=== PATIENT | male | born 1945 | race Caucasian/White ===

== ENCOUNTER → 2020-11-13 07:20 | Outpatient (CLI) | payer MEDICARE, OTHER, SELFPAY ==
[2020-11-13 08:24] LABS: Alanine Aminotransferase 25 IU/L (<50); Albumin 3.9 g/dL (3.5-5.0); Albumin Globulin Ratio 1.6 (1.0-2.8); Alkaline Phosphatase 59 U/L (38-126); Aspartate Aminotransferase 33 IU/L (17-59); BUN Creatinine Ratio 17.6 (6-22); Bilirubin Total 0.5 mg/dL (0.2-1.3); Blood Urea Nitrogen 18 mg/dL (9-20); Calcium 8.9 mg/dL (8.4-10.2); Carbon Dioxide 28 mmol/L (22-32); Chloride 105 mmol/L (98-107); Cholesterol 138 mg/dL (140-199); Estimated Glomerular Filt Rate > 60.0 mL/min (>60); Globulin 2.4 g/dL (1.7-4.1); Glucose 106 mg/dL (80-110); HDL Cholesterol 55 mg/dL (40-60); HEMOLYSIS < 15 (0-50); LDL Cholesterol Calculated 75 mg/dL (<100); Potassium 3.8 mmol/L (3.4-5.1); Sodium 137 mmol/L (137-145); Total Protein 6.3 g/dL (6.3-8.2); Triglycerides 42 mg/dL (35-150)
[2020-11-13 08:53] LABS: Prostate Specific Antigen Scrn 2.43 ng/mL (0.1-4.0)
[2020-11-13 08:55] LABS: Thyroid Stimulating Hormone 1.92 uIU/mL (0.47-4.68)
== END ==
PROVIDERS: Referring Provider Internal Medicine; Visit Provider Internal Medicine
DX: E78.49 Other hyperlipidemia (principal); Z12.5 Encounter for screening for malignant neoplasm of prostate; E03.9 Hypothyroidism, unspecified
CPT/HCPCS: 36415; 80053; 80061; 84443; G0103

== ENCOUNTER → 2021-02-07 07:27 | Outpatient (CLI) | payer MEDICARE, OTHER, SELFPAY ==
[2021-02-07 09:04] LABS: Alanine Aminotransferase 32 IU/L (<50); Albumin 3.6 g/dL (3.5-5.0); Albumin Globulin Ratio 1.5 (1.0-2.8); Alkaline Phosphatase 52 U/L (38-126); Aspartate Aminotransferase 36 IU/L (17-59); BUN Creatinine Ratio 28.2 (6-22); Bilirubin Total 0.7 mg/dL (0.2-1.3); Blood Urea Nitrogen 33 mg/dL (9-20); Calcium 8.5 mg/dL (8.4-10.2); Carbon Dioxide 27 mmol/L (22-32); Chloride 107 mmol/L (98-107); Cholesterol 136 mg/dL (140-199); Estimated Glomerular Filt Rate > 60.0 mL/min (>60); Globulin 2.4 g/dL (1.7-4.1); Glucose 95 mg/dL (80-110); HDL Cholesterol 53 mg/dL (40-60); HEMOLYSIS < 15 (0-50); LDL Cholesterol Calculated 77 mg/dL (<100); Potassium 3.9 mmol/L (3.4-5.1); Sodium 140 mmol/L (137-145); Triglycerides 32 mg/dL (35-150)
[2021-02-07 09:34] LABS: Prostate Specific Antigen Scrn 1.92 ng/mL (0.1-4.0)
[2021-02-07 09:35] LABS: Thyroid Stimulating Hormone 3.79 uIU/mL (0.47-4.68)
== END ==
PROVIDERS: PCP Internal Medicine; Referring Provider Internal Medicine; Visit Provider Internal Medicine
DX: E78.49 Other hyperlipidemia (principal); Z12.5 Encounter for screening for malignant neoplasm of prostate; E03.9 Hypothyroidism, unspecified
CPT/HCPCS: 36415; 80053; 80061; 84443; G0103

== ENCOUNTER → 2022-04-06 09:29 | Outpatient (CLI) | payer MEDICARE, OTHER, SELFPAY ==
[2022-04-06 11:46] LABS: BUN Creatinine Ratio 24.5 (6-22); Blood Urea Nitrogen 26 mg/dL (9-20); Calcium 8.3 mg/dL (8.4-10.2); Carbon Dioxide 24 mmol/L (22-32); Chloride 109 mmol/L (98-107); Cholesterol 101 mg/dL (140-199); Estimated Glomerular Filt Rate > 60 mL/min (>60); Glucose 99 mg/dL (80-110); HDL Cholesterol 37 mg/dL (40-60); HEMOLYSIS < 15 (0-50); LDL Cholesterol Calculated 53 mg/dL (<100); Potassium 4.2 mmol/L (3.4-5.1); Sodium 140 mmol/L (137-145); Triglycerides 56 mg/dL (35-150); VLDL Cholesterol Calculated 11 mg/dL (2-30)
== END ==
PROVIDERS: PCP Internal Medicine
DX: E78.00 Pure hypercholesterolemia, unspecified (principal)
CPT/HCPCS: 36415; 80048; 80061

== ENCOUNTER → 2022-06-04 09:48 | Outpatient (CLI) | payer MEDICARE, OTHER, SELFPAY ==
[2022-06-04 11:34] LABS: TSH w/ Reflex to FT4 0.63 uIU/mL (0.47-4.68)
== END ==
PROVIDERS: PCP Internal Medicine; Referring Provider Internal Medicine; Visit Provider Internal Medicine
DX: E03.9 Hypothyroidism, unspecified (principal)
CPT/HCPCS: 36415; 84443

== ENCOUNTER 2022-06-29 08:30 | Outpatient (RCR) | payer MEDICARE, OTHER, SELFPAY | END 2022-06-29 15:09 | LOC: CAR 08:30 | PROVIDERS: PCP Internal Medicine; Referring Provider Thoracic Surgery (Cardiothoracic Vascular Surgery); Visit Provider Thoracic Surgery (Cardiothoracic Vascular Surgery) | DX: Z95.2 Presence of prosthetic heart valve (principal) | CPT/HCPCS: 93798 ==

== ENCOUNTER → 2022-07-02 08:52 | Outpatient (CLI) | payer MEDICARE, OTHER, SELFPAY ==
[2022-07-02 10:30] LABS: Add Manual Diff / Slide Review NO; Basophils Absolute Auto 0 /uL (0-100); Basophils Percent Auto 0.7 % (0-2); Eosinophils Absolute Auto 200 /uL (0-450); Eosinophils Percent Auto 3.9 % (2-4); Hematocrit 36.3 % (41-53); Lymphocytes Absolute Auto 1300 /uL (1100-4500); Lymphocytes Percent Auto 26.7 % (25-40); Mean Corpuscular HGB Conc 33.2 % (30-36); Mean Corpuscular Hemoglobin 27.9 PG (26-34); Mean Corpuscular Volume 84.1 fL (80-100); Monocytes Absolute Auto 500 /uL (0-900); Monocytes Percent Auto 10.5 % (3-14); Neutrophils Absolute Auto 2900 /uL (1500-7000); Neutrophils Percent Auto 58.2 % (50-75); Platelet Count 183 X10^3/uL (150-400); Red Blood Cell Count 4.32 X10^6/uL (4.5-5.9); Red Cell Distribution Width 16.9 % (11.6-14.8)
[2022-07-02 10:55] LABS: BUN Creatinine Ratio 15.9 (6-22); Blood Urea Nitrogen 21 mg/dL (9-20); Calcium 8.5 mg/dL (8.4-10.2); Carbon Dioxide 29 mmol/L (22-32); Chloride 103 mmol/L (98-107); Estimated Glomerular Filt Rate 56 mL/min (>60); Glucose 94 mg/dL (80-110); HEMOLYSIS < 15 (0-50); Sodium 140 mmol/L (137-145)
== END ==
PROVIDERS: PCP Internal Medicine; Referring Provider Internal Medicine Cardiovascular Disease; Visit Provider Internal Medicine Cardiovascular Disease
DX: I48.19 Other persistent atrial fibrillation (principal)
CPT/HCPCS: 36415; 80048; 85025

== ENCOUNTER → 2022-07-20 07:47 | Outpatient (CLI) | payer MEDICARE, OTHER, SELFPAY ==
[2022-07-20 09:46] LABS: Cholesterol 132 mg/dL (140-199); HDL Cholesterol 63 mg/dL (40-60); LDL Cholesterol Calculated 58 mg/dL (<100); Triglycerides 54 mg/dL (35-150)
[2022-07-20 17:29] LABS: Alanine Aminotransferase 23 IU/L (<50); Albumin 4.2 g/dL (3.5-5.0); Albumin Globulin Ratio 1.8 (1.0-2.8); Alkaline Phosphatase 94 U/L (38-126); Aspartate Aminotransferase 25 IU/L (17-59); BUN Creatinine Ratio 17.1 (6-22); Bilirubin Total 1.1 mg/dL (0.2-1.3); Blood Urea Nitrogen 22 mg/dL (9-20); Calcium 8.9 mg/dL (8.4-10.2); Carbon Dioxide 28 mmol/L (22-32); Chloride 105 mmol/L (98-107); Estimated Glomerular Filt Rate 58 mL/min (>60); Globulin 2.3 g/dL (1.7-4.1); Glucose 106 mg/dL (80-110); HEMOLYSIS < 15 (0-50); Potassium 3.9 mmol/L (3.4-5.1); Sodium 139 mmol/L (137-145); Total Protein 6.5 g/dL (6.3-8.2)
[2022-07-20 18:36] LABS: TSH w/ Reflex to FT4 2.66 uIU/mL (0.47-4.68)
== END ==
PROVIDERS: PCP Internal Medicine; Referring Provider Nurse Practitioner; Visit Provider Nurse Practitioner
DX: E78.00 Pure hypercholesterolemia, unspecified (principal)
CPT/HCPCS: 36415; 80048; 80061; 80076; 84443

== ENCOUNTER → 2022-09-16 07:33 | Outpatient (CLI) | payer MEDICARE, OTHER, SELFPAY ==
[2022-09-16 09:18] LABS: BUN Creatinine Ratio 17.1 (6-22); Blood Urea Nitrogen 24 mg/dL (9-20); Calcium 8.7 mg/dL (8.4-10.2); Carbon Dioxide 28 mmol/L (22-32); Chloride 103 mmol/L (98-107); Cholesterol 113 mg/dL (140-199); Estimated Glomerular Filt Rate 52 mL/min (>60); Glucose 92 mg/dL (80-110); HDL Cholesterol 45 mg/dL (40-60); HEMOLYSIS < 15 (0-50); LDL Cholesterol Calculated 53 mg/dL (<100); Potassium 3.4 mmol/L (3.4-5.1); Sodium 142 mmol/L (137-145); Triglycerides 73 mg/dL (35-150)
[2022-09-16 09:29] LABS: LDL Cholesterol Direct 47 mg/dL (<100)
== END ==
PROVIDERS: PCP Internal Medicine; Referring Provider Physician Assistant; Visit Provider Physician Assistant
DX: I10 Essential (primary) hypertension (principal)
CPT/HCPCS: 36415; 80048; 80061; 83721

== ENCOUNTER → 2022-11-26 08:38 | Outpatient (CLI) | payer MEDICARE, OTHER, SELFPAY ==
[2022-12-07 18:54] LABS: Aldosterone/Renin Activity Rat 9.9 (0.0-30.0); Plama Renin, LC/MS/MS 0.355 ng/mL/hr (0.167-5.380)
== END ==
PROVIDERS: PCP Internal Medicine; Referring Provider Internal Medicine; Visit Provider Internal Medicine
DX: I10 Essential (primary) hypertension (principal)
CPT/HCPCS: 36415; 82088; 84244

== ENCOUNTER → 2022-12-23 06:58 | Outpatient (CLI) | payer MEDICARE, OTHER, SELFPAY ==
[2022-12-23 08:35] LABS: Blood Urea Nitrogen 34 mg/dL (9-20); Calcium 8.8 mg/dL (8.4-10.2); Carbon Dioxide 29 mmol/L (22-32); Chloride 102 mmol/L (98-107); Estimated Glomerular Filt Rate 54 mL/min (>60); Glucose 97 mg/dL (80-110); HEMOLYSIS < 15 (0-50); Sodium 138 mmol/L (137-145)
== END ==
PROVIDERS: PCP Internal Medicine; Referring Provider Internal Medicine; Visit Provider Internal Medicine
DX: I11.9 Hypertensive heart disease without heart failure (principal)
CPT/HCPCS: 36415; 80048

== ENCOUNTER → 2023-01-11 07:14 | Outpatient (CLI) | payer MEDICARE, OTHER, SELFPAY ==
[2023-01-11 08:42] LABS: Cholesterol 193 mg/dL (140-199); HDL Cholesterol 38 mg/dL (40-60); LDL Cholesterol Calculated 138 mg/dL (<100); Triglycerides 85 mg/dL (35-150)
[2023-01-11 09:57] LABS: TSH w/ Reflex to FT4 2.44 uIU/mL (0.47-4.68)
[2023-01-12 19:45] LABS: Hep C Virus Ab w/Reflex Quant NEGATIVE s/c (NEGATIVE)
[2023-01-14 04:27] LABS: Cystatin C 0.91 mg/L (0.78-1.15)
== END ==
PROVIDERS: PCP Student in an Organized Health Care Education/Training Program; Referring Provider Student in an Organized Health Care Education/Training Program; Visit Provider Student in an Organized Health Care Education/Training Program
DX: E03.9 Hypothyroidism, unspecified (principal); E78.2 Mixed hyperlipidemia; E06.4 Drug-induced thyroiditis; T46.2X5A Adverse effect of other antidysrhythmic drugs, initial encounter; Z11.59 Encounter for screening for other viral diseases; N18.31 Chronic kidney disease, stage 3a
CPT/HCPCS: 36415; 80061; 82610; 84443; 86803

== ENCOUNTER → 2023-02-24 07:35 | Outpatient (CLI) | payer MEDICARE, OTHER, SELFPAY ==
[2023-02-24 10:20] LABS: Thyroid Stimulating Hormone 1.91 uIU/mL (0.47-4.68)
[2023-02-24 10:23] LABS: Free T4, Direct Thyroxine 1.55 ng/dL (0.78-2.19)
== END ==
PROVIDERS: PCP Internal Medicine; Referring Provider Internal Medicine; Visit Provider Internal Medicine
DX: I48.0 Paroxysmal atrial fibrillation (principal)
CPT/HCPCS: 36415; 84439; 84443

== ENCOUNTER → 2023-05-11 07:51 | Outpatient (CLI) | payer MEDICARE, OTHER, SELFPAY ==
[2023-05-11 09:36] LABS: Alanine Aminotransferase 24 IU/L (<50); Albumin 4.2 g/dL (3.5-5.0); Albumin Globulin Ratio 1.8 (1.0-2.8); Alkaline Phosphatase 68 U/L (38-126); Aspartate Aminotransferase 26 IU/L (17-59); BUN Creatinine Ratio 17.1 (6-22); Bilirubin Total 0.9 mg/dL (0.2-1.3); Blood Urea Nitrogen 26 mg/dL (9-20); Calcium 8.9 mg/dL (8.4-10.2); Carbon Dioxide 26 mmol/L (22-32); Chloride 103 mmol/L (98-107); Estimated Glomerular Filt Rate 47 mL/min (>60); Globulin 2.3 g/dL (1.7-4.1); Glucose 101 mg/dL (80-110); HEMOLYSIS < 15 (0-50); Potassium 4.1 mmol/L (3.4-5.1); Sodium 138 mmol/L (137-145); Total Protein 6.5 g/dL (6.3-8.2)
== END ==
PROVIDERS: PCP Internal Medicine; Referring Provider Internal Medicine; Visit Provider Internal Medicine
DX: E78.5 Hyperlipidemia, unspecified (principal)
CPT/HCPCS: 36415; 80053

== ENCOUNTER → 2023-05-28 08:22 | Outpatient (CLI) | payer MEDICARE, OTHER, SELFPAY ==
[2023-05-28 09:14] LABS: Blood Urea Nitrogen 25 mg/dL (9-20); Calcium 9.3 mg/dL (8.4-10.2); Carbon Dioxide 28 mmol/L (22-32); Chloride 102 mmol/L (98-107); Estimated Glomerular Filt Rate 49 mL/min (>60); Glucose 121 mg/dL (80-110); HEMOLYSIS < 15 (0-50); Potassium 4.2 mmol/L (3.4-5.1); Sodium 137 mmol/L (137-145)
== END ==
PROVIDERS: PCP Internal Medicine; Referring Provider Internal Medicine; Visit Provider Internal Medicine
DX: I11.9 Hypertensive heart disease without heart failure (principal)
CPT/HCPCS: 36415; 80048

== ENCOUNTER → 2023-06-16 07:47 | Outpatient (CLI) | payer MEDICARE, OTHER, SELFPAY ==
[2023-06-16 08:57] LABS: BUN Creatinine Ratio 15.4 (6-22); Blood Urea Nitrogen 20 mg/dL (9-20); Calcium 8.9 mg/dL (8.4-10.2); Carbon Dioxide 28 mmol/L (22-32); Chloride 105 mmol/L (98-107); Estimated Glomerular Filt Rate 57 mL/min (>60); Glucose 104 mg/dL (80-110); HEMOLYSIS < 15 (0-50); Potassium 3.9 mmol/L (3.4-5.1); Sodium 139 mmol/L (137-145)
== END ==
PROVIDERS: PCP Internal Medicine; Referring Provider Internal Medicine; Visit Provider Internal Medicine
DX: E11.9 Type 2 diabetes mellitus without complications (principal)
CPT/HCPCS: 36415; 80048

== ENCOUNTER → 2023-07-30 07:31 | Outpatient (CLI) | payer MEDICARE, OTHER, SELFPAY ==
[2023-07-30 10:14] LABS: BUN Creatinine Ratio 16.4 (6-22); Blood Urea Nitrogen 20 mg/dL (9-20); Calcium 9.1 mg/dL (8.4-10.2); Carbon Dioxide 26 mmol/L (22-32); Chloride 104 mmol/L (98-107); Estimated Glomerular Filt Rate > 60 mL/min (>60); Glucose 93 mg/dL (80-110); HEMOLYSIS < 15 (0-50); Potassium 3.7 mmol/L (3.4-5.1); Sodium 137 mmol/L (137-145)
== END ==
PROVIDERS: PCP Internal Medicine; Referring Provider Internal Medicine; Visit Provider Internal Medicine
DX: I11.9 Hypertensive heart disease without heart failure (principal); E78.5 Hyperlipidemia, unspecified
CPT/HCPCS: 36415; 80048

== ENCOUNTER → 2023-08-02 09:05 | Outpatient (CLI) | payer MEDICARE, OTHER, SELFPAY ==
--- NOTE | 2023-08-02 | DI.CT.S_ITS ---
PROCEDURE: CT ANGIO CHEST INDICATIONS: Aneurysm of the ascending aorta, without rupture TECHNIQUE: After the administration of intravenous contrast, 2.5 mm thick sections acquired from the lung apices to the posterior lung bases. Maximum intensity projection (MIP) oblique sagittal reformats were then acquired parallel to the aortic arch. For radiation dose reduction, the following was used: automated exposure control. COMPARISON: Outside Facility, , CT ANGIO CHEST, 08/10/2022, 8:09. FINDINGS: Image quality: Excellent. Aorta: Again noted is open repair of the ascending aorta. A small apparent anterior pseudoaneurysm off of the ascending aorta does not appear significantly changed in size. On previous image 36 of series 6 it measured 1.3 x 0.7 cm. On current image 81/4 it measures 1.3 x 0.7 cm. A question tiny left anterior pseudoaneurysm is also unchanged in size. Reference previous image 32 of series 6 versus current image 74 of series 4. The repaired ascending aorta is otherwise normal in caliber. Transverse arch and descending thoracic aorta are normal in caliber. There is classic three-vessel arch anatomy. Great vessel origins are widely patent. Mediastinum: No hematomas. Percutaneous aortic valve. Severe coronary artery calcifications. Mild cardiomegaly.. No pericardial effusion. No mediastinal or hilar adenopathy by size criteria. Central pulmonary arteries are normal in size. Esophagus is normal in caliber. No hiatal hernia. Lungs and pleura: No acute airspace opacities. No pleural effusions or pneumothorax. Central and peripheral airways are patent and normal in caliber. Bones and chest wall: No axillary adenopathy by size criteria. Thyroid gland is unremarkable . No suspicious bony lesions. No vertebral body compression fractures. Upper Abdomen: There is an oval water density right adrenal mass which has slightly increased in size. On previous image 68/2 it measured 5.5 x 4.2 cm. On current image sets 177/4 it measures 6.3 x 4.1 cm. IMPRESSION: 1. Stable size and appearance of ascending aorta, status post open repair. 2 apparent small pseudoaneurysms appear stable. 2. Cardiomegaly, valve prosthesis, severe coronary artery atherosclerotic calcifications. 3. Interval increase in size of a water density right adrenal lesion. Although this lesion most likely represents a benign adenoma, lesions greater than 5 cm are indeterminate, and this lesion has grown. Comment: Recommend either multiphase MRI or multiphase CT for further evaluation of the right adrenal. Dictated by: Jamel Glez M.D. on 08/02/2023 at 16:45 Approved by: Jamel Glez M.D. on 08/02/2023 at 16:57
== END ==
PROVIDERS: PCP Internal Medicine; Referring Provider Internal Medicine; Visit Provider Internal Medicine
DX: I71.21 Aneurysm of the ascending aorta, without rupture (principal); I51.7 Cardiomegaly; Z95.2 Presence of prosthetic heart valve; I25.10 Atherosclerotic heart disease of native coronary artery without angina pectoris
CPT/HCPCS: 71275; Q9967

== ENCOUNTER → 2023-08-13 08:34 | Outpatient (CLI) | payer MEDICARE, OTHER, SELFPAY ==
--- NOTE | 2023-08-13 | DI.ECHO.S_ITS ---
[facility] +---------+ [facility] +---------+ : : [address] [place] : : : : [id number] : : : : Phone: [phone] Echocardiogram Report + + :Name: ALONZO SILVA Study Date: 08/13/2023 Height: 74 in : :[facility] ReadingLocation: Weight: 220 lb : : Gender: Male BSA: 2.3 m2 : :: 1945 Age: 78 yrs BP: 153/73 mmHg: :Reason For Study: ASCENDING AORTA ANEURYSM REPAIR : : Performed By: Margie Mahoney : :Referring: ANDREW MORROW : + + Interpretation Summary Afib with controlled rate. Normal LV size; mild concenric LVH; normal wall motion and LV systolic function. EF is 50-55%. Severe biatrial enlargement. No significant valvular abnormalities. Estimated PA systolic pressure is 60 mm Hg assuming RA pressure of 8 mm Hg. No prior echo at [facility] available for comparison. Procedure: A two-dimensional transthoracic echocardiogram with color flow and Doppler was performed. The study quality was technically good. There is no prior echocardiogram noted for this patient. The heart rate ranged between 53- 63 bpm during the study. Left Ventricle: The left ventricle is normal in size. There is mild concentric left ventricular hypertrophy. The ejection fraction is estimated to be 50-55%. Diastolic function could not be accurately assessed due to atrial fibrillation. Right Ventricle: Borderline right ventricular enlargement. The right ventricular systolic function is normal. Atria: The left atrium is severely dilated. The right atrium is severely dilated. The interatrial septum grossly appears intact with no obvious evidence for an atrial septal defect. Mitral Valve: The mitral valve leaflets appear mildly thickened, but open well. There is mild to moderate mitral regurgitation. Aortic Valve: The aortic valve opens well. No aortic regurgitation is present. Tricuspid Valve: The tricuspid valve leaflets are thin and pliable. The tricuspid valve leaflets are thickened and/or calcified, but open well. There is a trace or physiologic amount of tricuspid regurgitation. The right ventricular systolic pressure is estimated to be at least 60 mmHg based on an estimated right atrial pressure of 8 mm Hg. Pulmonic Valve: The pulmonic valve is not well seen, but is grossly normal. There is a trace or physiologic amount of pulmonic regurgitation. Great Vessels: The aortic root is normal size. The ascending aorta is normal in size. The aortic arch is normal in size. The IVC is dilated (diameter is greater than 2.1 cm) yet it collapses greater than 50% with a sniff. This suggests a right atrial pressure of 8 mm Hg. Pericardium/ Pleura There is no pericardial effusion. There is no pleural effusion. MMode/2D Measurements & Calculations LVIDd: 5.6 cm LVOT diam: 2.4 cm LVIDs: 4.1 cm Ao root diam: 3.6 cm FS: 27.3 % asc Aorta Diam: 3.4 cm EPSS: 0.84 cm Ao Arch Diam (Prox Trans): 2.8 cm IVSd: 1.1 cm LVPWd: 1.2 cm LV saha. diameter/BSA (cm/m^2): 2.5 LV sys. diameter/BSA (cm/m^2): 1.8 LA A2 area: 30.6 cm2 RA long axis: 7.2 cm LA A4 area: 31.6 cm2 RA area: 31.8 cm2 LA length (vol): 6.8 cm RA vol: 119.9 ml LA vol: 121.4 ml RA : 53.0 ml/m2 LA vol index: 53.7 ml/m2 IVC diam: 2.1 cm RVD1 (basal): 3.4 cm TAPSE: 2.0 cm Doppler Measurements & Calculations Ao V2 max: 180.8 cm/sec LVOT Max Tino: 100.5 cm/sec Ao V2 mean: 119.5 cm/sec LV V1 max P.0 mmHg Ao max P.1 mmHg LV V1 VTI: 25.3 cm Ao mean P.5 mmHg HUI(I,D): 2.5 cm2 Ao V2 VTI: 45.7 cm HUI(V,D): 2.5 cm2 sev ratio: 0.55 HUI indexed to BSA (cm^2/m^2): 1.1 MV E max tino: 96.0 cm/sec TR max tino: 295.4 cm/sec MV A max tino: 29.0 cm/sec TR max P.8 mmHg MV E/A: 3.3 PA V2 max: 73.7 cm/sec Med Peak E' Tino: 6.6 cm/sec PA V2 mean: 55.8 cm/sec E/E' med: 14.5 PA mean P.4 mmHg Lat Peak E' Tino: 10.5 cm/sec PA pr(Accel): 8.8 mmHg E/E' lat: 9.1 E/e' average: 11.8 MV dec time: 0.32 sec MR PISA: 6.0 cm2 SV(LVOT): 113.3 ml MR flow rate: 267.2 cm3/sec MR PISA radius: 0.98 cm Electronically signed by: Andrew Morrow M.D. on Reading Physician:08/14/2023 12:45 AM
== END ==
PROVIDERS: PCP Internal Medicine; Referring Provider Internal Medicine; Visit Provider Internal Medicine
DX: I71.21 Aneurysm of the ascending aorta, without rupture (principal); I34.0 Nonrheumatic mitral (valve) insufficiency
CPT/HCPCS: 93306

== ENCOUNTER → 2024-07-28 08:10 | Outpatient (CLI) | payer MEDICARE, OTHER, SELFPAY ==
--- NOTE | 2024-07-28 08:13 | DI.ECHO.S_ITS ---
[facility] +---------+ [facility] : : [address] : : [place] : : [id number] : : Phone: [phone] Echocardiogram Report + + :Name: ALONZO SILVA Study Date: 07/28/2024 Height: 74 in : :Hospital ReadingLocation: Weight: 223 lb : : Gender: Male BSA: 2.3 m2 : :: 1945 Age: 79 yrs BP: 149/79 mmHg: :Reason For Study: ANEURYSM ASCENDING AORTA : :Ordering Physician: CRISTHIAN, : :ANDREW Performed By: Claire De La Rosa : :Referring: ANDREW MORROW : + + Interpretation Summary Sinus bradycardia with frequent PAC's; uncontrolled hypertension. Normal LV size; and wall thickness; there is basal inferior and basal inferoseptal akinesis; EF is 50-55%. Mild RA enlargement and moderate LA enlargement; mildly dilated RV Aortic valve is replaced by history with 29 mm [employer] freestyle heterograft via Bentall procedure 01/2022. Prosthesis is functioning normally Estimated PA systolic pressure is 46 mm Hg assuming RA pressure of 3 mm Hg. Compared to prior echo 08/13/2023, inferior akinesis is more pronounced on current study. PAC's are more frequent. Procedure: A two-dimensional transthoracic echocardiogram with color flow and Doppler was performed. The study quality was technically adequate. Comparison is made with the echocardiogram of 08/13/2023. The patient was in atrial fibrillation with heart rates between 56-74 bpm during the exam. Left Ventricle: The left ventricle is normal in size and wall thickness. The ejection fraction is estimated to be 50-55%. Right Ventricle: The right ventricle is mildly dilated. The right ventricular systolic function is normal. Atria: The left atrium is moderately dilated. The right atrium is mildly dilated. There is no Doppler evidence for an interatrial shunt. Mitral Valve: The mitral valve is normal in structure and function. There is mild mitral regurgitation. Aortic Valve: There is a bioprosthetic aortic valve. The peak aortic velocity is 2.2 m/sec. The aortic valve mean gradient is 10 mmHg. The calculated aortic valve area is 1.5 cm2. No aortic regurgitation is present. Tricuspid Valve: The tricuspid valve is normal in structure and function. There is mild tricuspid regurgitation. The right ventricular systolic pressure is estimated to be at least 51 mmHg based on an estimated right atrial pressure of 8 mm Hg. Pulmonic Valve: The pulmonic valve leaflets are thin and pliable; valve motion is normal. There is mild pulmonic regurgitation. Great Vessels: The aortic root is normal size. The dimensions of the ascending aorta are normal. The IVC is dilated (diameter is greater than 2.1 cm) yet it collapses greater than 50% with a sniff. This suggests a right atrial pressure of 8 mm Hg. Pericardium/ Pleura There is no pericardial effusion. There is no pleural effusion. MMode/2D Measurements & Calculations LVIDd: 5.5 cm LVOT diam: 2.1 cm LVIDs: 4.5 cm Ao root diam: 3.3 cm FS: 19.5 % asc Aorta Diam: 3.3 cm EPSS: 0.59 cm Ao Arch Diam (Prox Trans): 2.8 cm IVSd: 1.1 cm LVPWd: 0.99 cm LV saha. diameter/BSA (cm/m^2): 2.4 LV sys. diameter/BSA (cm/m^2): 2.0 LA A2 area: 27.9 cm2 RA long axis: 6.8 cm LA A4 area: 28.2 cm2 RA area: 27.5 cm2 LA length (vol): 6.5 cm RA vol: 94.2 ml LA vol: 102.9 ml RA : 41.4 ml/m2 LA vol index: 45.2 ml/m2 IVC diam: 2.7 cm RVD1 (basal): 4.3 cm RVD2 (mid): 3.4 cm TAPSE: 1.6 cm Doppler Measurements & Calculations Ao V2 max: 220.7 cm/sec LVOT Max Tino: 98.6 cm/sec Ao V2 mean: 148.4 cm/sec LV V1 max P.9 mmHg Ao max P.5 mmHg LV V1 VTI: 20.4 cm Ao mean P.0 mmHg HUI(I,D): 1.4 cm2 Ao V2 VTI: 48.3 cm HUI(V,D): 1.5 cm2 sev ratio: 0.42 HUI indexed to BSA (cm^2/m^2): 0.63 MV E max tino: 78.6 cm/sec TR max tino: 328.4 cm/sec Med Peak E' Tino: 6.8 cm/sec TR max P.1 mmHg E/E' med: 11.6 PA V2 max: 107.8 cm/sec Lat Peak E' Tino: 11.7 cm/sec PA V2 mean: 79.6 cm/sec E/E' lat: 6.7 PA mean P.7 mmHg E/e' average: 9.2 PA pr(Accel): 34.5 mmHg MV dec time: 0.17 sec SV(LVOT): 69.7 ml Electronically signed by: Andrew Morrow M.D. on Reading Physician:07/30/2024 02:20 PM
== END ==
LOC: ECHO 08:13
PROVIDERS: PCP Internal Medicine; Referring Provider Internal Medicine; Visit Provider Internal Medicine
DX: I71.21 Aneurysm of the ascending aorta, without rupture (principal); I08.1 Rheumatic disorders of both mitral and tricuspid valves; Z95.2 Presence of prosthetic heart valve
CPT/HCPCS: 93306

== ENCOUNTER → 2024-08-23 11:32 | Outpatient (CLI) | payer MEDICARE, OTHER, SELFPAY ==
[2024-08-23 12:41] LABS: BUN Creatinine Ratio 22.9 (6-22); Blood Urea Nitrogen 33 mg/dL (9-20); Calcium 8.9 mg/dL (8.4-10.2); Carbon Dioxide 27 mmol/L (22-32); Chloride 105 mmol/L (98-107); Estimated Glomerular Filt Rate 50 mL/min (>60); Glucose 112 mg/dL (80-110); HEMOLYSIS < 15 (0-50); Potassium 3.5 mmol/L (3.4-5.1); Sodium 138 mmol/L (137-145)
[2024-08-23 12:56] LABS: Free T4, Direct Thyroxine 1.16 ng/dL (0.78-2.19)
[2024-08-23 13:10] LABS: Thyroid Stimulating Hormone 2.76 uIU/mL (0.47-4.68)
== END ==
LOC: LAB 11:33
PROVIDERS: PCP Internal Medicine; Referring Provider Internal Medicine; Visit Provider Internal Medicine
DX: I1A.0 Resistant hypertension (principal)
CPT/HCPCS: 36415; 80048; 84439; 84443